=== PATIENT | male | born 1990 | race Caucasian/White ===

== ENCOUNTER 2020-03-29 11:52 | Emergency (ER) | payer OTHER ==
[2020-03-29 12:02] VITALS: RESP 18; TEMP 99
[2020-03-29] MEDS ORDERED: ASPIRIN 81 MG PO STA (12:15)
--- NOTE | 2020-03-29 12:45 | ED ---
Chest Pain HPI - General Chief Complaint: Chest Pain Stated Complaint: Chest Pain/dizziness Time Seen by Provider: 03/29/20 12:05 Source: patient Mode of arrival: ambulatory Limitations: no limitations - History of Present Illness Initial Comments: This 29-year-old white male presents with a complaint of some chest pain bilaterally which is described as a pressure and nonradiating. He states that it occurred this morning upon waking. He states that it was associated with some dizziness which was described as a spinning or vertiginous type sensation. He felt very shaky and was having some visual complaints described as double vision or blurry vision. He states that he has had previous incidents in the past but has never gotten worked up for them. He apparently has had an anxiety reaction in the past as well. He was seen at [facility] urgent care today and sent to the ER for further evaluation and treatment. He states that his symptoms have resolved at this time. He is normally very healthy and has not had any previous cardiac or pulmonary problems. There is no leg pain or swelling or history of DVT or PE. No other complaints or modifying factors. - Related Data Home Medications Medication Instructions Recorded Confirmed Fluticasone Nasal [place] [Flonase 1 spray EA NOSTRIL DAILY PRN 03/29/20 03/29/20 Nasal [place]] Allergies Allergy/AdvReac Type Severity Reaction Status Date / Time shellfish derived [Shellfish] Allergy Unknown Verified 03/29/20 12:37 UNKNOWN ANTIBIOTIC Allergy SEE COMMENT Uncoded 03/29/20 12:37 Review of Systems ROS Statement: Those systems with pertinent positive or pertinent negative responses have been documented in the HPI. ROS Other: All systems not noted in ROS Statement are negative. Past Medical History Past Medical History: No Reported History History of Any Multi-Drug Resistant Organisms: None Reported Past Surgical History: No Surgical Hx Reported Past Psychological History: No Psychological Hx Reported Smoking Status: Current every day smoker Past Alcohol Use History: Occasional Past Drug Use History: Marijuana General Exam - General Exam Comments Initial Comments: GENERAL: The patient is well nourished and well hydrated. VITAL SIGNS: Heart rate, blood pressure, respiratory rate reviewed as recorded in nurse's notes. EYES: Pupils are round and reactive. Extraocular movements are intact. No conjunctival / lid redness or swelling. ENT: No external evidence of injury, swelling, or ecchymosis. Airway is patent. Throat is clear. NECK: Nontender. No swelling or evidence of injury. No subcutaneous emphysema. Trachea is midline. No thyroid mass. HEART: Regular rate and rhythm. Good peripheral pulses. LUNGS/CHEST: Breath sounds clear and equal bilaterally. No rales, rhonchi, or wheezes. No ecchymosis, subcutaneous emphysema, or tenderness. ABDOMEN: Abdomen soft without tenderness. No palpable masses or organomegaly. No peritoneal signs. No abdominal wall swelling or ecchymosis. EXTREMITIES: No extremity tenderness. Normal muscle tone and function. No thoracolumbar tenderness. NEUROLOGIC: Sensation is grossly intact. Cranial nerve exam reveals face is symmetrical, tongue is midline, speech is clear. SKIN: No abrasions or ecchymosis is noted. No induration or masses noted. PSYCHIATRIC: Alert and oriented. Appropriate behavior and judgment. Limitations: no limitations Course Vital Signs 03/29/20 03/29/20 11:56 12:40 Temperature 99 F Pulse Rate 64 71 Respiratory 18 18 Rate Blood Pressure 139/82 142/74 O2 Sat by Pulse 100 99 Oximetry Chest Pain [facility] The patient was seen and examined. All diagnostics were reviewed. The EKG shows a normal sinus rhythm ever rate of [address]-T wave changes noted. The MT intervals 162, QRS duration is 80, and the QTc interval is 401. He is placed on a threat monitoring analyst no ectopy is identified. IV is established. He does receive an aspirin. The chest x-ray does not show any acute abnormalities. The laboratories essentially all within normal limits. His symptomatology is resolved at this time. Upon further questioning, he does relate some moderate to significant recent stress and anxiety. He has had panic attacks in the past. It is felt likely that this could be related. It is felt as though he would benefit from follow-up with the primary care physician and possible placement on an SSRI. His mother relates that they do not like to take medications so would prefer to try something natural. They're instructed that he may benefit from follow-up with a therapist as well. Close follow-up recommended. Return parameters discussed. Disposition Clinical Impression: Chest pain, Dizziness, Visual disturbance, Anxiety Disposition: HOME SELF-CARE Condition: Good Instructions (If sedation given, give patient instructions): Chest Pain (ED), Anxiety (ED) Is patient prescribed a controlled substance at d/c from ED?: No Referrals: None,Stated [Primary Care Provider] - 1-2 days Time of Disposition: 13:46
--- NOTE | 2020-03-29 12:51 | XR ---
EXAMINATION TYPE: XR chest 2V DATE OF EXAM: 03/29/2020 COMPARISON: NONE TECHNIQUE: PA and lateral views submitted. HISTORY: Chest pain FINDINGS: The lungs are clear and there is no pneumothorax, pleural effusion, or focal pneumonia. Heart size normal. No overt failure. IMPRESSION: 1. No acute process.
[2020-03-29 13:02] LABS: Basophils # (A) 0.1 k/uL (0-0.2); Basophils % (A) 1 %; Eosinophils # (A) 0.1 k/uL (0-0.7); Eosinophils % (A) 1 %; HCT 47.3 % (39.0-53.0); HGB 15.8 gm/dL (13.0-17.5); Lymphocytes # (A) 1.7 k/uL (1.0-4.8); Lymphocytes % (A) 17 %; MCH 29.1 pg (25.0-35.0); MCHC 33.5 g/dL (31.0-37.0); MCV 86.9 fL (80.0-100.0); Mean Platelet Volume 9.3; Monocytes # (A) 0.5 k/uL (0-1.0); Monocytes % (A) 5 %; Neutrophils # (A) 7.3 k/uL (1.3-7.7); Neutrophils % (A) 75 %; Platelet Count 258 k/uL (150-450); RBC 5.44 m/uL (4.30-5.90); RDW 13.1 % (11.5-15.5); WBC 9.8 k/uL (3.8-10.6)
[2020-03-29 13:13] LABS: ALT 21 U/L (4-49); AST 26 U/L (17-59); African American GFR (CKD) >90 (>60 ml/min/1.73 sqM); Albumin 4.9 g/dL (3.5-5.0); Alkaline Phosphatase 99 U/L (38-126); Anion Gap 8 mmol/L; Blood Urea Nitrogen 12 mg/dL (9-20); Calcium 10.2 mg/dL (8.4-10.2); Carbon Dioxide 25 mmol/L (22-30); Chloride 106 mmol/L (98-107); Glucose 109 mg/dL (74-99); Non-African American GFR(CKD) >90 (>60 ml/min/1.73 sqM); Potassium 4.5 mmol/L (3.5-5.1); Sodium 139 mmol/L (137-145); Total Bilirubin 0.6 mg/dL (0.2-1.3); Total Protein 8.1 g/dL (6.3-8.2)
[2020-03-29 14:06] VITALS: BP 113/82; PULSE 74
== END 2020-03-29 14:10 | disposition home or self-care (01) ==
LOC: EC 11:52
DX: R07.9 Chest pain, unspecified (principal); R42 Dizziness and giddiness; H53.9 Unspecified visual disturbance; F41.9 Anxiety disorder, unspecified; F17.200 Nicotine dependence, unspecified, uncomplicated; Z88.1 Allergy status to other antibiotic agents; Z91.013 Allergy to seafood
CPT/HCPCS: 36415; 71046; 80053; 84484; 85025; 93005; 99285